=== PATIENT | female | born 1935 | race Caucasian/White ===

== ENCOUNTER → 2018-11-24 | Outpatient (CLI) | payer MEDICARE, BC | END | disposition home or self-care (01) | LOC: LAB SHORT 07:12 → PLD 07:12 | DX: C44.329 Squamous cell carcinoma of skin of other parts of face (principal) | CPT/HCPCS: 88173 ==

== ENCOUNTER 2018-12-09 06:04 | Day surgery (SDC) | payer MEDICARE, BC ==
[~2018-12-09] VITALS: Ht 165.1 cm; Wt 70.6 kg
[~2018-12-09 06:04] MED LIST: ASPI81CH PO; CALCIUM 1,0001 EACH PO; CARV6.25 PO; FURO40 PO; GLUCOSE TAB PO; HYDCHL25 PO; LATANOPROST2.5 ML BOTHEYES; LEVSOD25 PO; LUMIFY2.5 ML LEFTEYE; POTA10T PO; QUIN10 PO; RALO60 PO; SITA100T2 PO; Simvastatin40 MG PO; VENLAFAXINE H37.5 MG PO
--- NOTE | 2018-12-09 07:50 | NUR ---
LATE GETTING INTO OR. DR POTTS HERE AT 0730 SONIA AND WAITING FOR HEART [id number] TO TURN OFF DEFIBULLATOR
--- NOTE | 2018-12-09 08:48 | NUR ---
12/09/18 0848 Edison Dutta NO ANTIBIOTIC NEEDED PER DR. POTTS
--- NOTE | 2018-12-09 11:10 | NUR ---
REPORT FROM PACU STAFF.
--- NOTE | 2018-12-09 11:25 | NUR ---
PT TO ROOM 224 FROM PACU. PT ALERT AND ORIENTED. DENIES PAIN/NAUSEA. DENIES SOB. ANSWERS QUESTIONS APPROPRIATELY. VSS.
--- NOTE | 2018-12-09 12:10 | NUR ---
PT IVF STARTED, ICE WATER AND JELLO PROVIDED. PT FAMILY AT BEDSIDE. WILL CONT MONITOR.
--- NOTE | 2018-12-09 13:06 | NUR ---
PT MEDICATED WITH 2 NORCO FOR PAIN. GEORGETTE DRAIN EMPTIED (50ML SANGUINOUS). LIGHTS DIMMED FOR PT COMFORT.
--- NOTE | 2018-12-09 13:49 | NUR ---
PT RESTING IN POSITION OF COMFORT. RESP EVEN AND NON LABORED.
--- NOTE | 2018-12-09 15:50 | NUR ---
recvd report from previous RN Anmol, assumed care. pt lying in bed a/o x 4, pleasant, states to minimal pain at this time, denies need for analgesia, no n/v
--- NOTE | 2018-12-09 17:58 | NUR ---
SINCE 1599, WHEN ASSUMED CARE OF PT, PT HAS REMAINED A/O X 4, PLEASEANT/COOPERATIVE, DENIES PAIN, UP TO BATHROOM WITH URINE OUPUT 100 ML, USED CANE UP IN ROOM, IS UP IN CHAIR EATING DINNER, NO N/V
[2018-12-09 21:36] LABS: Source, Urine Voided
[2018-12-09 21:43] LABS: Bilirubin, Urine Neg (Neg); Blood, Urine 1+ (Neg); Glucose Qualitative, Urine 4+ (Neg); Ketones, Urine Neg (Neg); Leukocyte Esterase, Urine 3+ (Neg); Nitrite, Urine Pos (Neg); Protein, Urine 1+ (Neg); Specific Gravity, Urine 1.015 (1.003-1.022); Urobilinogen, Urine NORM (Normal)
[2018-12-09 21:44] LABS: Appearance, Urine Hazy (Clear); Color, Urine Yellow (P-Yellow)
[2018-12-09 22:32] LABS: Bacteria Many /hpf; Red Blood Cells, Urine 0-2 /hpf (0-2); Squamous Epithelial Cells Few /hpf (Few); White Blood Cells, Urine TNTC /hpf (0-5)
[2018-12-10] MEDS ORDERED: CIPR500 PO (11:08)
--- NOTE | 2018-12-10 14:51 | NUR ---
DISCHARGE PT AND SPOUSE PROVIDED WITH WRITTEN AND VERBAL DISCHARGE INSTRUCTIONS. THEY REPORTED UNDERSTANDING AFTER QUESTIONS WERE ANSWERED. PT VERBALIZED UNDERSTANDING HOW TO CARE FOR HER DRAIN. PT ESCORTED OUT AT APPROXIMATELY 1452 IN A WHEELCHAIR.
== END 2018-12-10 14:30 | disposition home or self-care (01) ==
LOC: ORSCMMR 06:04 → EDSTATUS 07:30 → PRE IP 07:30 → SURS 11:38 → ORSCMMR 12-10 14:30
PROVIDERS: Otolaryngology
PROC: 07T20ZZ Resection of Left Neck Lymphatic, Open Approach (ICD-10-PCS; principal; 2018-12-09 07:30)
DX: C77.0 Secondary and unspecified malignant neoplasm of lymph nodes of head, face and neck (principal); Z85.3 Personal history of malignant neoplasm of breast; I10 Essential (primary) hypertension; E11.9 Type 2 diabetes mellitus without complications; Z95.0 Presence of cardiac pacemaker; Z79.899 Other long term (current) drug therapy
CPT/HCPCS: 81001; 82947; 87077; 87086; 87186; 88305; 88342; 93287; A9270; A9270-GY; J1100; J2405; J2704; J2710; J3010; J7120

== ENCOUNTER 2019-05-05 08:00 | Day surgery (SDC) | payer MEDICARE, BC ==
[~2019-05-05 08:00] MED LIST changes: +CIPR500 PO
[2019-05-25] MEDS ORDERED: EUTHYROX25 MCG PO (11:08)
[2019-05-25] MEDS ORDERED: Accupril20 MG PO (11:08)
[2019-05-25] MEDS ORDERED: Metformin HCl850 MG PO (11:09)
[2019-05-25] MEDS ORDERED: VENL37.5 PO (11:09)
== END 2019-05-05 22:52 | disposition home or self-care (01) ==
LOC: MOI US 08:00 → MOI MAM 08:00 → MOI US 08:30
DX: C50.012 Malignant neoplasm of nipple and areola, left female breast (principal); Z17.0 Estrogen receptor positive status [ER+]
CPT/HCPCS: 19083; 77065; 88305; 88341; 88342; 88360; A4648; G0279

== ENCOUNTER → 2019-11-20 | Outpatient (CLI) | payer MEDICARE ==
[~2019-11-20] MED LIST changes: +Accupril20 MG PO; +EUTHYROX25 MCG PO; +Metformin HCl850 MG PO; +VENL37.5 PO
== END ==
LOC: LAB 17:22 → LAB SHORT 17:22
DX: A49.02 Methicillin resistant Staphylococcus aureus infection, unspecified site (principal)
CPT/HCPCS: 87070; 87205

== ENCOUNTER 2021-01-21 07:54 | Emergency (ER) | payer MEDICARE ==
[~2021-01-21] VITALS: Ht 162.6 cm; Wt 60.3 kg
== END 2021-01-21 09:07 | disposition home or self-care (01) ==
LOC: ER 07:54
DX: F07.81 Postconcussional syndrome (principal); S00.83XA Contusion of other part of head, initial encounter; I10 Essential (primary) hypertension; E11.9 Type 2 diabetes mellitus without complications; Z88.2 Allergy status to sulfonamides; Z79.899 Other long term (current) drug therapy; Z79.84 Long term (current) use of oral hypoglycemic drugs; W18.00XA Striking against unspecified object with subsequent fall, initial encounter
CPT/HCPCS: 70450; 99283-25

== ENCOUNTER 2021-01-24 17:39 | Emergency (ER) | payer MEDICARE ==
[~2021-01-24] VITALS: Ht 162.6 cm; Wt 60.3 kg
== END 2021-01-24 21:41 | disposition home or self-care (01) ==
LOC: ER 17:39
DX: S06.0X9A Concussion with loss of consciousness of unspecified duration, initial encounter (principal); I10 Essential (primary) hypertension; E11.9 Type 2 diabetes mellitus without complications; Z88.2 Allergy status to sulfonamides; Z79.899 Other long term (current) drug therapy; Z87.891 Personal history of nicotine dependence; W19.XXXA Unspecified fall, initial encounter
CPT/HCPCS: 70450; 99283-25

== ENCOUNTER 2021-04-18 08:06 | Emergency (ER) | payer MEDICARE ==
[~2021-04-18] VITALS: Ht 162.6 cm; Wt 62.6 kg
[2021-04-18] MEDS ORDERED: Monodox100 MG PO (10:01)
== END 2021-04-18 10:09 | disposition home or self-care (01) ==
LOC: ER 08:06
DX: L03.114 Cellulitis of left upper limb (principal); M19.032 Primary osteoarthritis, left wrist; I10 Essential (primary) hypertension; Z79.84 Long term (current) use of oral hypoglycemic drugs; E11.9 Type 2 diabetes mellitus without complications; I25.10 Atherosclerotic heart disease of native coronary artery without angina pectoris; Z95.810 Presence of automatic (implantable) cardiac defibrillator; Z88.2 Allergy status to sulfonamides; Z79.899 Other long term (current) drug therapy
CPT/HCPCS: 73110; 99283-25

== ENCOUNTER 2021-05-04 12:12 | Emergency (ER) | payer MEDICARE ==
[~2021-05-04] VITALS: Ht 165.1 cm; Wt 62.1 kg
[~2021-05-04 12:12] MED LIST changes: +Monodox100 MG PO
== END 2021-05-04 13:22 | disposition home or self-care (01) ==
LOC: ER 12:12
DX: S00.511A Abrasion of lip, initial encounter (principal); I10 Essential (primary) hypertension; E11.9 Type 2 diabetes mellitus without complications; I25.10 Atherosclerotic heart disease of native coronary artery without angina pectoris; Z95.5 Presence of coronary angioplasty implant and graft; Z88.2 Allergy status to sulfonamides; Z79.899 Other long term (current) drug therapy; Z79.84 Long term (current) use of oral hypoglycemic drugs; X58.XXXA Exposure to other specified factors, initial encounter
CPT/HCPCS: 99282

== ENCOUNTER 2021-11-06 09:04 | Day surgery (SDC) | payer MEDICARE ==
[~2021-11-06] VITALS: Ht 162.6 cm; Wt 61.0 kg
[~2021-11-06 09:04] MED LIST changes: +ANASTROZOLE1 M7 PO; +Alphagan P5 ML BOTHEYES
--- NOTE | 2021-11-06 13:35 | NUR ---
PT DRESSED SELF WITH NO COMPLICATION. SITE COVERED WITH CLEAN DRESSING AND TEGADERM. NO BLEEDING, OOZING OR HEMATOMA NOTED. PT DENIES ANY PAIN. PT STATES HER UNDERSTANDING OF SITE CARE AND DC INSTRUCTIONS AND DENIES ANY QUESTIONS OR CONCERNS. IV DCD WITH CATH INTACT. PT TAKEN TO EXIT VIA WHEELCHAIR.
== END 2021-11-06 13:15 | disposition home or self-care (01) ==
LOC: MHTC 09:04
DX: Z45.02 Encounter for adjustment and management of automatic implantable cardiac defibrillator (principal); I42.0 Dilated cardiomyopathy; I10 Essential (primary) hypertension; E11.9 Type 2 diabetes mellitus without complications; Z79.84 Long term (current) use of oral hypoglycemic drugs; Z95.810 Presence of automatic (implantable) cardiac defibrillator; Z88.2 Allergy status to sulfonamides
CPT/HCPCS: 33264; 99152; 99153; J0690; J1580; J1644; J2250; J3010; J3370; J7030; J7040

== ENCOUNTER 2022-06-25 08:24 | Day surgery (SDC) | payer MEDICARE ==
[~2022-06-25] VITALS: Ht 162.6 cm; Wt 59.5 kg
[~2022-06-25 08:24] MED LIST changes: +CEFD300 PO
[2022-06-25] MEDS ORDERED: LEVSOD25 (08:48)
[2022-06-25] MEDS ORDERED: DOC250 (08:48)
[2022-06-25] MEDS ORDERED: GLUCOSE4 GM (08:48)
== END 2022-06-25 11:31 | disposition home or self-care (01) ==
LOC: ORSCSDS 08:24
PROVIDERS: Internal Medicine Gastroenterology
PROC: 0DBL8ZX Excision of Transverse Colon, Via Natural or Artificial Opening Endoscopic, Diagnostic (ICD-10-PCS; principal; 2022-06-25 09:45)
PROC: 0DBP8ZX Excision of Rectum, Via Natural or Artificial Opening Endoscopic, Diagnostic (ICD-10-PCS; principal; 2022-06-25 09:45)
PROC: 0DBC8ZX Excision of Ileocecal Valve, Via Natural or Artificial Opening Endoscopic, Diagnostic (ICD-10-PCS; principal; 2022-06-25 09:45)
DX: R19.4 Change in bowel habit (principal); C18.0 Malignant neoplasm of cecum; D12.3 Benign neoplasm of transverse colon; K62.1 Rectal polyp; K57.30 Diverticulosis of large intestine without perforation or abscess without bleeding; K64.8 Other hemorrhoids; E11.9 Type 2 diabetes mellitus without complications; I10 Essential (primary) hypertension; K21.9 Gastro-esophageal reflux disease without esophagitis; Z87.891 Personal history of nicotine dependence; Z79.84 Long term (current) use of oral hypoglycemic drugs; Z79.899 Other long term (current) drug therapy
CPT/HCPCS: 82947; 88305; J2704; J7120

== ENCOUNTER → 2022-07-30 | Outpatient (CLI) | payer MEDICARE ==
[~2022-07-30] MED LIST changes: +DOC250; +GLUCOSE4 GM; +LEVSOD25
== END | disposition home or self-care (01) ==
LOC: LAB 07:57 → LAB SHORT 07:57
DX: C44.42 Squamous cell carcinoma of skin of scalp and neck (principal); C44.40 Unspecified malignant neoplasm of skin of scalp and neck; C77.0 Secondary and unspecified malignant neoplasm of lymph nodes of head, face and neck
CPT/HCPCS: 88305

== ENCOUNTER 2022-08-31 07:54 | Inpatient (IN) | payer MEDICARE ==
[~2022-08-31] VITALS: Ht 160 cm; Wt 58.8 kg
--- NOTE | 2022-09-02 07:50 | NUR ---
Ambulatory in Day Surgery. Surgical site prepped with 2% Chlorhexidine cloth wipe. Patient states colon prep results clear. History, Chart, Medications and Allergies reviewed before start of procedure.Patient confirms NPO status and agrees with scheduled surgery. Patient reports completing Chlorhexadine shower X2 prior to admission to hospital.Lungs clear T/O to Auscultation. Insulin given per order 3U SC for blood sugar of 293. Pt drank clear ensure at 0430.
--- NOTE | 2022-09-02 07:53 | NUR ---
CARDIOLOGY HERE TO ACCESS DEFIBRILATOR TO TURN OFF AT 0730.
--- NOTE | 2022-09-02 12:46 | NUR ---
PATIENT CAME BACK FROM PACU TODAY AT 1230. POD 0 LAP COLECTOMY PATIENT IS A&OX4. VS ARE WNL AND IS ON RA. PATIENT REPORTS MINIMAL PAIN AT THIS TIME. SHE HAS 4 LAP SITES WITH STERI STRIPS THAT ARE C/D/I AND ONE INCISION BELOW THE BELLY BUTTON THAT HAS GAUZE WITH TAPE THAT IS ALSO C/D/I. SHE DENIES NAUSEA OR VOMITING. SHE IS TOLERATING SMALL SIPS OF CLEAR LIQUID. MICHEL IS DRAINING PER GRAVITY WITH YELLOW URINE. SHE IS LAYING IN BED WITH CALL LIGHT IN REACH.
[2022-09-02 13:12] LABS: Source, Urine Foley catheter
[2022-09-02 13:20] LABS: Bilirubin, Urine Neg (Neg); Blood, Urine 2+ (Neg); Glucose Qualitative, Urine 3+ (Neg); Ketones, Urine Neg (Neg); Leukocyte Esterase, Urine 3+ (Neg); Nitrite, Urine Neg (Neg); Protein, Urine Neg (Neg); Urobilinogen, Urine NORM (Normal)
[2022-09-02 13:53] LABS: Appearance, Urine Hazy (Clear); Color, Urine Yellow (P-Yellow)
[2022-09-02 13:54] LABS: Bacteria Few /hpf; Squamous Epithelial Cells Few /hpf (Few); White Blood Cells, Urine 25-50 /hpf (0-5)
--- NOTE | 2022-09-02 15:00 | NUR ---
SHIFT SUMMARY: POD 0 LAP COLECTOMY NO SIGNIFICANT CHANGES SINCE POST OP. PAIN IS MANAGED SO FAR WITH PO TYLENOL AND IV FENT. HER X5 LAP SITES ON ABD WITH STERI STRIPS AND ONE WITH GAUZE/TAPE IS C/D/I. ABD IS TENDER BUT SOFT TO TOUCH. DENIES NAUSEA OR VOMITING. MICHEL IS INTACT WITH YELLOW URINE OUTPUT. DENIES NUMBNESS OR TINGLING IN ALL EXTREMITIES. SHE IS TOLERATING SMALL AMOUNTS OF CLEAR LIQUID PO INTAKE. CALLS APPROPRIATELY. CALL LIGHT WITHIN REACH. THE PLAN IS TO CONTINUE PAIN MANAGEMENT AND CONTINUE CLEAR LIQUID DIET.
[2022-09-03 04:01] LABS: BASOPHILS ABSOLUTE AUTO 0.02 K/mm3 (0.00-0.23); BASOPHILS PERCENT AUTO 0 % (0-2); EOSINOPHILS ABSOLUTE AUTO 0.02 K/mm3 (0.00-0.68); EOSINOPHILS PERCENT AUTO 0 % (0-6); Hematocrit 29.3 % (33.0-51.0); IMMATURE GRAN ABSOLUTE AUTO 0.02 K/mm3 (0.00-0.10); IMMATURE GRAN PERCENT AUTO 0 % (0-1); LYMPHOCYTES PERCENT AUTO 9 % (21-46); MONOCYTES ABSOLUTE AUTO 0.77 K/mm3 (0.16-1.47); MONOCYTES PERCENT AUTO 8 % (4-13); Mean Corpuscular HGB 30.1 pg (26.0-34.0); Mean Corpuscular HGB Conc 34.1 g/dL (31.5-36.5); Mean Corpuscular Volume 88 fL (80-100); Mean Platelet Volume 11.4 fL (9.1-12.4); NEUTROPHILS ABSOLUTE AUTO 8.38 K/mm3 (1.96-9.15); NEUTROPHILS PERCENT AUTO 83 % (41-73); Platelet Count 165 K/mm3 (150-400); RDW Coefficient Variation 14.4 % (11.7-14.2); RDW Standard Deviation 46.4 fL (35.1-46.3); Red Blood Cell Count 3.32 M/mm3 (3.80-5.20); White Blood Cell Count 10.11 K/mm3 (4.00-11.30)
[2022-09-03 04:21] LABS: Calcium, Blood 8.8 mg/dL (8.5-10.1); Potassium, Blood 2.9 mmol/L (3.5-5.5)
--- NOTE | 2022-09-03 05:14 | NUR ---
DIRECTOR OF STRATEGIC PARTNERSHIPS SUMMARY PT POD 0 FOR LAP COLECTOMY. ABD LAP SITES X5 C/D/I. PT REPORTS MINIMAL PAIN TO ABD THAT HAS BEEN CONTROLLED WITH SCHEDULED TYLENOL. TOLERATING CLEAR LIQUID DIET WITH NO ISSUE. DENIES BM/FLATUS THUS FAR. VSS, WILL CONTINUE TO MONITOR.
--- NOTE | 2022-09-03 10:18 | NUR ---
0845 REPORTS NAUSEA AFTER ATE JELLO, ZOFRAN GIVEN
--- NOTE | 2022-09-03 11:51 | NUR ---
0834 PT REPORTS LEFT EYE SLIGHTLY PAINFUL SINCE YESTERDAY FOLLOWING SURGERY, STATES FEELS LIKE A "SCRATCH ON MY EYE" DR ROLDAN AWARE OF AND ORDERS RECEIVED
--- NOTE | 2022-09-03 11:52 | NUR ---
PT REPORTS EYE PAIN MUCH LESS TO LEFT EYE AFTER DROPS APPLIED THIS MORNIING
[2022-09-03 14:32] LABS: Bun/Creatinine Ratio 24.6 (12.0-20.0); Calcium, Blood 8.7 mg/dL (8.5-10.1); Creatinine, Blood 0.93 mg/dL (0.40-1.00); Phosphorus, Blood 2.7 mg/dL (2.5-4.9); Potassium, Blood 3.1 mmol/L (3.5-5.5)
[2022-09-04 05:21] LABS: BASOPHILS ABSOLUTE AUTO 0.02 K/mm3 (0.00-0.23); BASOPHILS PERCENT AUTO 0 % (0-2); EOSINOPHILS ABSOLUTE AUTO 0.28 K/mm3 (0.00-0.68); EOSINOPHILS PERCENT AUTO 3 % (0-6); Hematocrit 32.8 % (33.0-51.0); IMMATURE GRAN ABSOLUTE AUTO 0.03 K/mm3 (0.00-0.10); IMMATURE GRAN PERCENT AUTO 0 % (0-1); LYMPHOCYTES ABSOLUTE AUTO 1.18 K/mm3 (0.84-5.20); LYMPHOCYTES PERCENT AUTO 14 % (21-46); MONOCYTES ABSOLUTE AUTO 0.88 K/mm3 (0.16-1.47); MONOCYTES PERCENT AUTO 10 % (4-13); Mean Corpuscular HGB 29.7 pg (26.0-34.0); Mean Corpuscular HGB Conc 33.5 g/dL (31.5-36.5); Mean Corpuscular Volume 89 fL (80-100); Mean Platelet Volume 11.3 fL (9.1-12.4); NEUTROPHILS ABSOLUTE AUTO 6.35 K/mm3 (1.96-9.15); NEUTROPHILS PERCENT AUTO 73 % (41-73); Platelet Count 201 K/mm3 (150-400); RDW Coefficient Variation 14.2 % (11.7-14.2); RDW Standard Deviation 45.6 fL (35.1-46.3); White Blood Cell Count 8.74 K/mm3 (4.00-11.30)
[2022-09-04 05:39] LABS: Magnesium, Blood 1.8 mg/dL (1.6-2.4)
[2022-09-04 05:40] LABS: Bun/Creatinine Ratio 19.3 (12.0-20.0); Calcium, Blood 10.2 mg/dL (8.5-10.1); Creatinine, Blood 0.83 mg/dL (0.40-1.00); Phosphorus, Blood 2.6 mg/dL (2.5-4.9); Potassium, Blood 3.6 mmol/L (3.5-5.5)
--- NOTE | 2022-09-04 06:32 | NUR ---
Patient given scheduled pain medication and slept well overnight. Surgical sites clean dry and intact. Patient is passing gas and had smear/small bowel movement. Patient walks to bathroom with cane with minimal to no assist. Gait is steady. Patient tolerating clear liquids. No questions or concerns at this time.
[2022-09-04] MEDS ORDERED: ACET325 PO (13:31)
--- NOTE | 2022-09-04 14:04 | NUR ---
1402 DISCHARGED TO [facility] WITH . PT HAS HAD 2 SOFT BROWN BM THIS SHIFT, DENIES NAUSEA, AMBULATING IN ROOM. PT TAKING PO FOOD AND FLUIDS, VOIDING CLEAR YELLOW URINE. ABD INCISIONS INTACT WITHOUT REDNESS OR DRAINAGE. PT AND SPOUSE IN AGREEMENT WITH DISCHARGE PLAN
== END 2022-09-04 14:02 | disposition home or self-care (01) | DRG 331 ==
LOC: PRE IP 09-02 06:09 → SURS 09-02 06:09 → PRE IP 09-02 07:30 → SURS 09-02 11:36
PROVIDERS: ADMIT Surgery
PROC: 8E0W4CZ Robotic Assisted Procedure of Trunk Region, Percutaneous Endoscopic Approach (ICD-10-PCS; 2022-09-02)
PROC: 0DBF4ZZ Excision of Right Large Intestine, Percutaneous Endoscopic Approach (ICD-10-PCS; principal; 2022-09-02 07:30)
DX: C18.0 Malignant neoplasm of cecum (principal); Z28.21 Immunization not carried out because of patient refusal; M19.90 Unspecified osteoarthritis, unspecified site; K59.09 Other constipation; H40.9 Unspecified glaucoma; I10 Essential (primary) hypertension; E03.9 Hypothyroidism, unspecified; E11.9 Type 2 diabetes mellitus without complications; Z85.3 Personal history of malignant neoplasm of breast; Z87.891 Personal history of nicotine dependence; Z90.49 Acquired absence of other specified parts of digestive tract; Z95.810 Presence of automatic (implantable) cardiac defibrillator; Z90.710 Acquired absence of both cervix and uterus; Z90.722 Acquired absence of ovaries, bilateral; Z88.2 Allergy status to sulfonamides; Z79.84 Long term (current) use of oral hypoglycemic drugs; Z79.890 Hormone replacement therapy; Z79.899 Other long term (current) drug therapy
CPT/HCPCS: 36415; 80048; 81001; 82947; 83735; 84100; 85025; 86850; 86900; 86901; 87086; 88309; A9270; J0690; J1650; J1815; J1885; J2370; J2405; J2704; J2765; J2795; J3010

== ENCOUNTER 2022-11-19 14:36 | Emergency (ER) | payer MEDICARE ==
[~2022-11-19] VITALS: Ht 162.6 cm; Wt 55.8 kg
[~2022-11-19 14:36] MED LIST changes: +ACET325 PO
[2022-11-19 15:04] LABS: BASOPHILS ABSOLUTE AUTO 0.03 K/mm3 (0.00-0.23); BASOPHILS PERCENT AUTO 0 % (0-2); EOSINOPHILS ABSOLUTE AUTO 0.16 K/mm3 (0.00-0.68); EOSINOPHILS PERCENT AUTO 2 % (0-6); Hemoglobin 10.4 g/dL (11.5-16.0); IMMATURE GRAN ABSOLUTE AUTO 0.06 K/mm3 (0.00-0.10); IMMATURE GRAN PERCENT AUTO 1 % (0-1); LYMPHOCYTES ABSOLUTE AUTO 0.88 K/mm3 (0.84-5.20); LYMPHOCYTES PERCENT AUTO 12 % (21-46); MONOCYTES ABSOLUTE AUTO 0.67 K/mm3 (0.16-1.47); MONOCYTES PERCENT AUTO 9 % (4-13); Mean Corpuscular HGB 29.5 pg (26.0-34.0); Mean Corpuscular HGB Conc 33.5 g/dL (31.5-36.5); Mean Corpuscular Volume 88 fL (80-100); Mean Platelet Volume 10.5 fL (9.1-12.4); NEUTROPHILS ABSOLUTE AUTO 5.35 K/mm3 (1.96-9.15); NEUTROPHILS PERCENT AUTO 75 % (41-73); Platelet Count 227 K/mm3 (150-400); RDW Coefficient Variation 14.2 % (11.7-14.2); RDW Standard Deviation 45.7 fL (35.1-46.3); Red Blood Cell Count 3.52 M/mm3 (3.80-5.20); White Blood Cell Count 7.15 K/mm3 (4.00-11.30)
[2022-11-19 15:22] LABS: Albumin, Blood 3.5 g/dL (3.4-5.0); Bilirubin, Total 0.2 mg/dL (0.1-1.0); Bun/Creatinine Ratio 21.8 (12.0-20.0); Creatinine, Blood 1.1 mg/dL (0.40-1.00); Globulin, Blood 3.5 g/dL (2.2-4.0); Potassium, Blood 4.4 mmol/L (3.5-5.5)
[2022-11-19 15:30] LABS: Source, Urine Clean Catch
[2022-11-19 15:41] LABS: Appearance, Urine Cloudy (Clear); Bilirubin, Urine Neg (Neg); Blood, Urine 2+ (Neg); Color, Urine Yellow (P-Yellow); Glucose Qualitative, Urine Neg (Neg); Ketones, Urine Neg (Neg); Leukocyte Esterase, Urine 3+ (Neg); Nitrite, Urine Neg (Neg); Protein, Urine 2+ (Neg); Urobilinogen, Urine NORM (Normal)
[2022-11-19 15:50] LABS: Bacteria Mod /hpf; Squamous Epithelial Cells Few /hpf (Few); Transitional Epithelial Cells Few /hpf (0-Rare); White Blood Cells, Urine TNTC /hpf (0-5)
[2022-11-19] MEDS ORDERED: CEFD300 PO (16:28)
[2022-11-19 16:30] VITALS: BP 155/70
[2022-11-19] MEDS ORDERED: CEPH500 PO (16:46)
== END 2022-11-19 16:40 | disposition home or self-care (01) ==
LOC: ER 14:36
PROVIDERS: Student in an Organized Health Care Education/Training Program
DX: N39.0 Urinary tract infection, site not specified (principal); Z88.2 Allergy status to sulfonamides; Z79.899 Other long term (current) drug therapy; Z79.84 Long term (current) use of oral hypoglycemic drugs; E11.9 Type 2 diabetes mellitus without complications; I10 Essential (primary) hypertension; I25.10 Atherosclerotic heart disease of native coronary artery without angina pectoris
CPT/HCPCS: 36415; 80053; 81001; 85025; 87077; 87086; 87186; 93005; 93010; 99284-25; A9270

== ENCOUNTER 2023-01-18 10:14 | Emergency (ER) | payer MEDICARE ==
[~2023-01-18] VITALS: Ht 162.6 cm; Wt 54.9 kg
[~2023-01-18 10:14] MED LIST changes: +CEPH500 PO
[2023-01-18 11:21] LABS: Albumin, Blood 3.6 g/dL (3.4-5.0); Bilirubin, Total 0.6 mg/dL (0.1-1.0); Bun/Creatinine Ratio 19.1 (12.0-20.0); Creatinine, Blood 1.15 mg/dL (0.40-1.00); Globulin, Blood 3.5 g/dL (2.2-4.0); Potassium, Blood 3.8 mmol/L (3.5-5.5); Total Protein, Blood 7.1 g/dL (6.4-8.2)
[2023-01-18 11:24] LABS: BASOPHILS ABSOLUTE AUTO 0.04 K/mm3 (0.00-0.23); BASOPHILS PERCENT AUTO 1 % (0-2); EOSINOPHILS ABSOLUTE AUTO 0.01 K/mm3 (0.00-0.68); EOSINOPHILS PERCENT AUTO 0 % (0-6); Hematocrit 33.7 % (33.0-51.0); Hemoglobin 11.4 g/dL (11.5-16.0); IMMATURE GRAN ABSOLUTE AUTO 0.06 K/mm3 (0.00-0.10); IMMATURE GRAN PERCENT AUTO 1 % (0-1); LYMPHOCYTES ABSOLUTE AUTO 1.05 K/mm3 (0.84-5.20); LYMPHOCYTES PERCENT AUTO 15 % (21-46); MONOCYTES ABSOLUTE AUTO 0.65 K/mm3 (0.16-1.47); MONOCYTES PERCENT AUTO 9 % (4-13); Mean Corpuscular HGB 29.4 pg (26.0-34.0); Mean Corpuscular HGB Conc 33.8 g/dL (31.5-36.5); Mean Corpuscular Volume 87 fL (80-100); Mean Platelet Volume 11.5 fL (9.1-12.4); NEUTROPHILS ABSOLUTE AUTO 5.36 K/mm3 (1.96-9.15); NEUTROPHILS PERCENT AUTO 75 % (41-73); Platelet Count 224 K/mm3 (150-400); RDW Coefficient Variation 15.3 % (11.7-14.2); RDW Standard Deviation 48.7 fL (35.1-46.3); Red Blood Cell Count 3.88 M/mm3 (3.80-5.20); White Blood Cell Count 7.17 K/mm3 (4.00-11.30)
[2023-01-18 13:12] VITALS: BP 140/69
[2023-01-19] MEDS ORDERED: ONDA4ODT MM (22:57)
[2023-01-19] MEDS ORDERED: CIPR500 PO (22:57)
== END 2023-01-18 13:34 | disposition home or self-care (01) ==
LOC: ER 10:14
PROVIDERS: Physician Assistant
DX: K52.9 Noninfective gastroenteritis and colitis, unspecified (principal); E11.22 Type 2 diabetes mellitus with diabetic chronic kidney disease; N18.9 Chronic kidney disease, unspecified; I25.10 Atherosclerotic heart disease of native coronary artery without angina pectoris; Z88.2 Allergy status to sulfonamides; Z79.899 Other long term (current) drug therapy; Z79.890 Hormone replacement therapy; Z87.891 Personal history of nicotine dependence; Z90.49 Acquired absence of other specified parts of digestive tract
CPT/HCPCS: 80053; 85025

== ENCOUNTER 2023-01-19 19:26 | Emergency (ER) | payer MEDICARE ==
[~2023-01-19] VITALS: Ht 162.6 cm; Wt 55.3 kg
[2023-01-19 20:09] LABS: BASOPHILS ABSOLUTE AUTO 0.03 K/mm3 (0.00-0.23); BASOPHILS PERCENT AUTO 0 % (0-2); EOSINOPHILS ABSOLUTE AUTO 0.06 K/mm3 (0.00-0.68); EOSINOPHILS PERCENT AUTO 1 % (0-6); Hematocrit 35.2 % (33.0-51.0); Hemoglobin 11.8 g/dL (11.5-16.0); IMMATURE GRAN ABSOLUTE AUTO 0.08 K/mm3 (0.00-0.10); IMMATURE GRAN PERCENT AUTO 1 % (0-1); LYMPHOCYTES ABSOLUTE AUTO 1.26 K/mm3 (0.84-5.20); LYMPHOCYTES PERCENT AUTO 16 % (21-46); MONOCYTES ABSOLUTE AUTO 0.82 K/mm3 (0.16-1.47); MONOCYTES PERCENT AUTO 11 % (4-13); Mean Corpuscular HGB 29.7 pg (26.0-34.0); Mean Corpuscular HGB Conc 33.5 g/dL (31.5-36.5); Mean Corpuscular Volume 89 fL (80-100); Mean Platelet Volume 11.3 fL (9.1-12.4); NEUTROPHILS ABSOLUTE AUTO 5.47 K/mm3 (1.96-9.15); NEUTROPHILS PERCENT AUTO 71 % (41-73); Platelet Count 214 K/mm3 (150-400); RDW Coefficient Variation 15.4 % (11.7-14.2); RDW Standard Deviation 50.5 fL (35.1-46.3); Red Blood Cell Count 3.97 M/mm3 (3.80-5.20); White Blood Cell Count 7.72 K/mm3 (4.00-11.30)
[2023-01-19 20:27] LABS: Albumin, Blood 3.7 g/dL (3.4-5.0); Bilirubin, Total 0.4 mg/dL (0.1-1.0); Bun/Creatinine Ratio 22.4 (12.0-20.0); Calcium, Blood 9.4 mg/dL (8.5-10.1); Creatinine, Blood 1.47 mg/dL (0.40-1.00); Globulin, Blood 3.8 g/dL (2.2-4.0); Potassium, Blood 4.4 mmol/L (3.5-5.5); Total Protein, Blood 7.5 g/dL (6.4-8.2)
[2023-01-19 22:07] LABS: Source, Urine Clean Catch
[2023-01-19 22:11] LABS: Bilirubin, Urine Neg (Neg); Blood, Urine 2+ (Neg); Glucose Qualitative, Urine Neg (Neg); Ketones, Urine Neg (Neg); Leukocyte Esterase, Urine 3+ (Neg); Nitrite, Urine Neg (Neg); Protein, Urine 1+ (Neg); Specific Gravity, Urine 1.015 (1.003-1.022); Urobilinogen, Urine NORM (Normal)
[2023-01-19 22:17] LABS: Appearance, Urine Hazy (Clear); Color, Urine Pale Yellow (P-Yellow)
[2023-01-19 22:18] LABS: Bacteria Mod /hpf; Squamous Epithelial Cells Few /hpf (Few); White Blood Cells, Urine 25-50 /hpf (0-5)
[2023-01-19 22:19] LABS: Transitional Epithelial Cells Few /hpf (0-Rare)
[2023-01-19] MEDS ORDERED: CIPR500 PO (22:57)
[2023-01-19] MEDS ORDERED: ONDA4ODT MM (22:57)
[2023-01-19 23:00] VITALS: BP 145/70
== END 2023-01-19 23:13 | disposition home or self-care (01) ==
LOC: ER 19:26
PROVIDERS: Emergency Medicine
DX: N39.0 Urinary tract infection, site not specified (principal); K85.90 Acute pancreatitis without necrosis or infection, unspecified; I10 Essential (primary) hypertension; I25.10 Atherosclerotic heart disease of native coronary artery without angina pectoris; E11.9 Type 2 diabetes mellitus without complications; Z95.810 Presence of automatic (implantable) cardiac defibrillator; Z88.2 Allergy status to sulfonamides; Z79.899 Other long term (current) drug therapy; Z79.84 Long term (current) use of oral hypoglycemic drugs
CPT/HCPCS: 74177; 80053; 81001; 83690; 85025; A9270; J2405; J7030; Q9967

== ENCOUNTER → 2023-04-21 | Outpatient (CLI) | payer MEDICARE ==
[~2023-04-21] MED LIST changes: +ONDA4ODT MM
== END ==
LOC: LAB SHORT 13:51 → LAB 13:51 → LAB FUT 04-18 15:15
DX: N18.30 Chronic kidney disease, stage 3 unspecified (principal); D63.1 Anemia in chronic kidney disease; N25.81 Secondary hyperparathyroidism of renal origin; E55.9 Vitamin D deficiency, unspecified; E78.00 Pure hypercholesterolemia, unspecified; R76.9 Abnormal immunological finding in serum, unspecified; R94.5 Abnormal results of liver function studies; R94.6 Abnormal results of thyroid function studies; D51.8 Other vitamin B12 deficiency anemias; D52.8 Other folate deficiency anemias; D50.9 Iron deficiency anemia, unspecified
CPT/HCPCS: 86335

== ENCOUNTER → 2023-04-21 | Outpatient (CLI) | payer MEDICARE ==
[2023-04-21 11:40] LABS: Creatinine Urine 20.6 mg/dL (27.00-270.00); Protein, Urine Quantitative 8.6 mg/dL (0.0-11.9)
== END | disposition home or self-care (01) ==
LOC: LAB 06:08 → LAB SHORT 06:08
PROVIDERS: Internal Medicine Nephrology
DX: N18.30 Chronic kidney disease, stage 3 unspecified (principal); D63.1 Anemia in chronic kidney disease; N25.81 Secondary hyperparathyroidism of renal origin; E55.9 Vitamin D deficiency, unspecified; E78.00 Pure hypercholesterolemia, unspecified; R76.9 Abnormal immunological finding in serum, unspecified; R94.5 Abnormal results of liver function studies; R94.6 Abnormal results of thyroid function studies; D51.8 Other vitamin B12 deficiency anemias; D52.8 Other folate deficiency anemias; D50.9 Iron deficiency anemia, unspecified
CPT/HCPCS: 81050; 82043; 82570; 84156

== ENCOUNTER 2023-05-14 12:02 | Day surgery (SDC) | payer MEDICARE ==
[~2023-05-14] VITALS: Ht 152.4 cm; Wt 55.6 kg
[2023-05-14] MEDS ORDERED: LISI20 PO (12:38)
[2023-05-14] MEDS ORDERED: Amiodarone HCl200 MG PO (12:39)
[2023-05-14 13:59] VITALS: BP 137/76
--- NOTE | 2023-05-14 14:03 | NUR ---
05/14/23 1403 Chelsey Mitchell IV DC'D CATH INTACT PT TOLERATED WELL. COBAN AND GAUZE IN PLACE
== END 2023-05-14 14:03 | disposition home or self-care (01) ==
LOC: ORSCSDS 12:02
PROVIDERS: Internal Medicine Gastroenterology
PROC: 0DJD8ZZ Inspection of Lower Intestinal Tract, Via Natural or Artificial Opening Endoscopic (ICD-10-PCS; principal; 2023-05-14 13:15)
PROC: 0DJ08ZZ Inspection of Upper Intestinal Tract, Via Natural or Artificial Opening Endoscopic (ICD-10-PCS; principal; 2023-05-14 13:15)
DX: Z85.038 Personal history of other malignant neoplasm of large intestine (principal); K21.9 Gastro-esophageal reflux disease without esophagitis; K57.30 Diverticulosis of large intestine without perforation or abscess without bleeding; K64.8 Other hemorrhoids; Z80.0 Family history of malignant neoplasm of digestive organs; Z85.3 Personal history of malignant neoplasm of breast; Z85.828 Personal history of other malignant neoplasm of skin; Z85.89 Personal history of malignant neoplasm of other organs and systems; Z86.010 Personal history of colon polyps; I25.10 Atherosclerotic heart disease of native coronary artery without angina pectoris; Z87.891 Personal history of nicotine dependence; E11.9 Type 2 diabetes mellitus without complications; E03.9 Hypothyroidism, unspecified; I50.9 Heart failure, unspecified; Z79.84 Long term (current) use of oral hypoglycemic drugs; Z79.899 Other long term (current) drug therapy
CPT/HCPCS: 82947; J0461; J2001; J2371; J2405; J2704; J7120; Q9968

== ENCOUNTER 2023-06-30 10:13 | Emergency (ER) | payer MEDICARE, BC ==
[~2023-06-30] VITALS: Ht 162.6 cm; Wt 55.8 kg
[~2023-06-30 10:13] MED LIST changes: +Amiodarone HCl200 MG PO; +LISI20 PO
[2023-06-30 11:08] LABS: Source, Urine Clean Catch
[2023-06-30 11:10] LABS: BASOPHILS ABSOLUTE AUTO 0.06 K/mm3 (0.00-0.23); BASOPHILS PERCENT AUTO 1 % (0-2); EOSINOPHILS ABSOLUTE AUTO 0.11 K/mm3 (0.00-0.68); EOSINOPHILS PERCENT AUTO 2 % (0-6); Hematocrit 34.3 % (33.0-51.0); Hemoglobin 11.7 g/dL (11.5-16.0); IMMATURE GRAN ABSOLUTE AUTO 0.09 K/mm3 (0.00-0.10); IMMATURE GRAN PERCENT AUTO 1 % (0-1); LYMPHOCYTES ABSOLUTE AUTO 0.86 K/mm3 (0.84-5.20); LYMPHOCYTES PERCENT AUTO 11 % (21-46); MONOCYTES PERCENT AUTO 8 % (4-13); Mean Corpuscular HGB 33.1 pg (26.0-34.0); Mean Corpuscular HGB Conc 34.1 g/dL (31.5-36.5); Mean Corpuscular Volume 97 fL (80-100); Mean Platelet Volume 11.1 fL (9.1-12.4); NEUTROPHILS ABSOLUTE AUTO 5.81 K/mm3 (1.96-9.15); NEUTROPHILS PERCENT AUTO 77 % (41-73); Platelet Count 208 K/mm3 (150-400); RDW Coefficient Variation 14.4 % (11.7-14.2); RDW Standard Deviation 51.7 fL (35.1-46.3); Red Blood Cell Count 3.54 M/mm3 (3.80-5.20); White Blood Cell Count 7.53 K/mm3 (4.00-11.30)
[2023-06-30 11:13] LABS: Bilirubin, Urine Neg (Neg); Blood, Urine 3+ (Neg); Glucose Qualitative, Urine Neg (Neg); Ketones, Urine Neg (Neg); Leukocyte Esterase, Urine 3+ (Neg); Nitrite, Urine Pos (Neg); Protein, Urine 2+ (Neg); Urobilinogen, Urine NORM (Normal)
[2023-06-30 11:21] LABS: Appearance, Urine Cloudy (Clear); Color, Urine Yellow (P-Yellow)
[2023-06-30 11:29] LABS: Bacteria Many /hpf; White Blood Cells, Urine 50-100 /hpf (0-5)
[2023-06-30 11:32] LABS: Hyaline Casts 0-2 /lpf (0-2); Squamous Epithelial Cells Rare /hpf (Few); Transitional Epithelial Cells Rare /hpf (0-Rare)
[2023-06-30 11:41] LABS: Albumin, Blood 3.7 g/dL (3.4-5.0); Bilirubin, Total 0.4 mg/dL (0.1-1.0); Bun/Creatinine Ratio 21.9 (12.0-20.0); Creatinine, Blood 1.28 mg/dL (0.40-1.00); Globulin, Blood 3.8 g/dL (2.2-4.0); Potassium, Blood 4.7 mmol/L (3.5-5.5); Total Protein, Blood 7.5 g/dL (6.4-8.2)
[2023-06-30] MEDS ORDERED: CEPH500 PO (11:59)
[2023-06-30 12:15] VITALS: BP 147/130
== END 2023-06-30 12:23 | disposition home or self-care (01) ==
LOC: ER 10:13
PROVIDERS: Emergency Medicine
DX: N39.0 Urinary tract infection, site not specified (principal); K59.00 Constipation, unspecified; Z88.2 Allergy status to sulfonamides; Z79.899 Other long term (current) drug therapy; Z79.84 Long term (current) use of oral hypoglycemic drugs; E11.9 Type 2 diabetes mellitus without complications; I10 Essential (primary) hypertension; I25.10 Atherosclerotic heart disease of native coronary artery without angina pectoris; Z87.891 Personal history of nicotine dependence
CPT/HCPCS: 74177; 80053; 81001; 85025; 87077; 87086; 87186; 99284-25; Q9967

== ENCOUNTER 2023-08-03 11:59 | Inpatient (IN) | payer MEDICARE ==
[~2023-08-03] VITALS: Ht 162.6 cm; Wt 61.4 kg
[2023-08-03 14:25] LABS: BASOPHILS ABSOLUTE AUTO 0.03 K/mm3 (0.00-0.23); BASOPHILS PERCENT AUTO 0 % (0-2); EOSINOPHILS ABSOLUTE AUTO 0.03 K/mm3 (0.00-0.68); EOSINOPHILS PERCENT AUTO 0 % (0-6); Hematocrit 33.1 % (33.0-51.0); Hemoglobin 11.3 g/dL (11.5-16.0); IMMATURE GRAN ABSOLUTE AUTO 0.11 K/mm3 (0.00-0.10); IMMATURE GRAN PERCENT AUTO 1 % (0-1); LYMPHOCYTES ABSOLUTE AUTO 0.46 K/mm3 (0.84-5.20); LYMPHOCYTES PERCENT AUTO 5 % (21-46); MONOCYTES ABSOLUTE AUTO 0.43 K/mm3 (0.16-1.47); MONOCYTES PERCENT AUTO 4 % (4-13); Mean Corpuscular HGB 32.9 pg (26.0-34.0); Mean Corpuscular HGB Conc 34.1 g/dL (31.5-36.5); Mean Corpuscular Volume 97 fL (80-100); Mean Platelet Volume 10.8 fL (9.1-12.4); NEUTROPHILS ABSOLUTE AUTO 8.61 K/mm3 (1.96-9.15); NEUTROPHILS PERCENT AUTO 89 % (41-73); Platelet Count 170 K/mm3 (150-400); RDW Coefficient Variation 13.2 % (11.7-14.2); Red Blood Cell Count 3.43 M/mm3 (3.80-5.20); White Blood Cell Count 9.67 K/mm3 (4.00-11.30)
[2023-08-03 14:46] LABS: International Normalized Ratio 1.04; Prothrombin Time Results 10.9 Sec (9.7-11.5)
[2023-08-03 14:49] LABS: Albumin, Blood 3.5 g/dL (3.4-5.0); Albumin/Globulin Ratio 1.1 (0.8-1.8); Bilirubin, Total 0.5 mg/dL (0.1-1.0); Bun/Creatinine Ratio 24.1 (12.0-20.0); Calcium, Blood 8.3 mg/dL (8.5-10.1); Creatinine, Blood 1.08 mg/dL (0.40-1.00); Globulin, Blood 3.3 g/dL (2.2-4.0); Potassium, Blood 3.6 mmol/L (3.5-5.5); Total Protein, Blood 6.8 g/dL (6.4-8.2)
[2023-08-03 18:26] VITALS: BP 165/84
[2023-08-03] MEDS ORDERED: Vitamin B-12100 MCG PO (18:43)
[2023-08-03 19:55] VITALS: BP 180/85
[2023-08-03 21:45] VITALS: BP 134/64
[2023-08-04] VITALS (16 sets, daily range): BP systolic 85–172; BP diastolic 43–94
--- NOTE | 2023-08-04 01:55 | NUR ---
VALIUM: 1.5 ML (7.5MG) IV VALIUM WASTED W/LIU ABBASI. SEE EMAR
[2023-08-04 05:03] LABS: Hemoglobin 11.3 g/dL (11.5-16.0); Mean Corpuscular HGB 32.6 pg (26.0-34.0); Mean Corpuscular HGB Conc 34.2 g/dL (31.5-36.5); Mean Corpuscular Volume 95 fL (80-100); Platelet Count 165 K/mm3 (150-400); RDW Coefficient Variation 13.2 % (11.7-14.2); RDW Standard Deviation 46.3 fL (35.1-46.3); Red Blood Cell Count 3.47 M/mm3 (3.80-5.20); White Blood Cell Count 7.88 K/mm3 (4.00-11.30)
[2023-08-04 05:34] LABS: Bun/Creatinine Ratio 22.5 (12.0-20.0); Calcium, Blood 8.7 mg/dL (8.5-10.1); Creatinine, Blood 1.02 mg/dL (0.40-1.00); Potassium, Blood 3.1 mmol/L (3.5-5.5)
--- NOTE | 2023-08-04 05:36 | NUR ---
SHIFT SUMMARY LEFT HIP FX. PT HAVING SEVERE MUSCLE SPASMS IN THE LEFT LEG. VALIUM ORDERED AND GIVEN AND PT STATES EFFECTIVE AND WAS ABLE TO REST AFTER ADMINISTRATION. 25 MCG IV FENTANYL + NORCO FOR PAIN MANAGEMENT. NPO SINCE MIDNIGHT. PUREWICK IN PLACE FOR VOIDING. REPOSITIONING FOR COMFORT PRN. USES CALL LIGHT APPROPRIATELY.
--- NOTE | 2023-08-04 13:36 | NUR ---
PATIENT WAS JUST TAKEN BACK TO THE OR.
--- NOTE | 2023-08-04 14:03 | NUR ---
History, Chart, Medications and Allergies reviewed before start of procedure. PATIENT INTO SDS VIA BED FROM SURGICAL FLOOR. Patient confirms NPO status and agrees with scheduled surgery. Lungs clear T/O to Auscultation. IV LEAKING, DC'D INTACT. NEW IV PLACED. PER [facility]ENTER STAFF WHO STOPED DEFIB ON PACER- IF AFTER 5 PM, SEND PATIENT TO FLOOR WITH TLE MONITORING AND DEFIB AVAILABLE AND WILL TURN BACK ON CAPABILITY IN AM.
--- NOTE | 2023-08-04 17:00 | NUR ---
PATIENT ARRIVED FROM PACU TODAY. POD 0 LEFT REINA HIP PATIENT IS A&OX4. PATIENT DENIES PAIN ON HER LEFT HIP AT THIS TIME. HER LEFT HIP HAS AN AQUACEL DRESSING THAT IS C/D/I. SHE DENIES NUMBNESS OR TINGLING. PATIENT IS ABLE TO MOVE ALL FINGERS AND TOES. SHE IS TOLERATING SMALL AMOUNTS OF PO INTAKE. DENIES NAUSEA OR VOMITING. PATIENT IS LAYING IN BED WITH CALL LIGHT IN REACH.
--- NOTE | 2023-08-04 23:25 | NUR ---
DR CONSULT DR NOTIFIED OF PT HYPOTENSION. PT HX OF HTN. DR ACKNOWLEDGED PT CURRENT MEDICATIONS GIVEN TODAY. DR ORDERED FLUIDS FOR PT.
[2023-08-05 01:17] VITALS: BP 87/72
[2023-08-05 02:13] VITALS: BP 112/54
--- NOTE | 2023-08-05 05:04 | NUR ---
SHIFT SUMMARY POD 1 L REINA HIP. NO ACUTE CHANGES OVERNIGHT. VSS, O2 2L NC. BP IMPROVING c FLUID ADMINISTRATION PER PREVIOUS NOTE. AQUACEL C/D/I. TOLERATING ORALS. AWAITING FIRST POST-OP AMBULATION, WBAT. MICHEL IN PLACE, DRAINING YELLOW URINE TO GRAVITY. PT MEDICATED 1x c TYLENOL FOR PAIN, PT REPORTS MINIMAL PAIN POST-OP. CALL LIGHT WITHIN REACH, BED IN LOWEST POSITION, WILL REPORT TO DAY RN.
[2023-08-05 07:12] VITALS: BP 116/59
[2023-08-05 09:01] LABS: BASOPHILS ABSOLUTE AUTO 0.01 K/mm3 (0.00-0.23); BASOPHILS PERCENT AUTO 0 % (0-2); EOSINOPHILS PERCENT AUTO 0 % (0-6); Hematocrit 31.2 % (33.0-51.0); Hemoglobin 10.4 g/dL (11.5-16.0); IMMATURE GRAN ABSOLUTE AUTO 0.09 K/mm3 (0.00-0.10); IMMATURE GRAN PERCENT AUTO 1 % (0-1); LYMPHOCYTES ABSOLUTE AUTO 0.52 K/mm3 (0.84-5.20); LYMPHOCYTES PERCENT AUTO 4 % (21-46); MONOCYTES ABSOLUTE AUTO 1.03 K/mm3 (0.16-1.47); MONOCYTES PERCENT AUTO 8 % (4-13); Mean Corpuscular HGB 32.7 pg (26.0-34.0); Mean Corpuscular HGB Conc 33.3 g/dL (31.5-36.5); Mean Corpuscular Volume 98 fL (80-100); Mean Platelet Volume 10.6 fL (9.1-12.4); NEUTROPHILS ABSOLUTE AUTO 11.07 K/mm3 (1.96-9.15); NEUTROPHILS PERCENT AUTO 87 % (41-73); Platelet Count 148 K/mm3 (150-400); RDW Coefficient Variation 13.2 % (11.7-14.2); RDW Standard Deviation 47.5 fL (35.1-46.3); Red Blood Cell Count 3.18 M/mm3 (3.80-5.20); White Blood Cell Count 12.72 K/mm3 (4.00-11.30)
[2023-08-05 09:23] LABS: Calcium, Blood 7.9 mg/dL (8.5-10.1); Creatinine, Blood 1.41 mg/dL (0.40-1.00); Potassium, Blood 3.3 mmol/L (3.5-5.5)
[2023-08-05 15:06] VITALS: BP 142/60
--- NOTE | 2023-08-05 16:55 | NUR ---
SHIFT SUMMARY POD1 L REINA HIP, VSS/RA, KIA PO, VOIDING, AMB SBA FWW/GB, UP TO CHAIR, PAIN MANAGED. WILL REPORT TO ONCOMING NOC RN.
[2023-08-05 19:38] VITALS: BP 128/65
[2023-08-06 02:29] VITALS: BP 165/70
--- NOTE | 2023-08-06 06:08 | NUR ---
SHIFT SUMMARY POD 2 L REINA HIP. NO ACUTE CHANGES OVERNIGHT. VSS, 1L O2 NC PRN WHILE ASLEEP, BIOX IN USE. AQUACEL C/D/I. TOLERATING ORALS. BEDPAN FOR TOILETING OVERNIGHT, PT STATES TIRED FROM PREVIOUS DAY. USES FWW c GB & 1 PERSON ASSIST. PT MEDICATED c TYLENOL PER EMAR, PT REPORTS PAIN TOLERABLE. ANTICIPATED DISCHARGE TO SNF LATER TODAY. CALL LIGHT WITHIN REACH, BED IN LOWEST POSITION, WILL REPORT TO DAY RN.
[2023-08-06 06:29] LABS: BASOPHILS ABSOLUTE AUTO 0.03 K/mm3 (0.00-0.23); BASOPHILS PERCENT AUTO 0 % (0-2); EOSINOPHILS PERCENT AUTO 1 % (0-6); Hematocrit 26.4 % (33.0-51.0); Hemoglobin 9.2 g/dL (11.5-16.0); IMMATURE GRAN ABSOLUTE AUTO 0.05 K/mm3 (0.00-0.10); IMMATURE GRAN PERCENT AUTO 1 % (0-1); LYMPHOCYTES ABSOLUTE AUTO 0.55 K/mm3 (0.84-5.20); LYMPHOCYTES PERCENT AUTO 8 % (21-46); MONOCYTES ABSOLUTE AUTO 0.85 K/mm3 (0.16-1.47); MONOCYTES PERCENT AUTO 12 % (4-13); Mean Corpuscular HGB 33.1 pg (26.0-34.0); Mean Corpuscular HGB Conc 34.8 g/dL (31.5-36.5); Mean Corpuscular Volume 95 fL (80-100); Mean Platelet Volume 11.4 fL (9.1-12.4); NEUTROPHILS ABSOLUTE AUTO 5.47 K/mm3 (1.96-9.15); NEUTROPHILS PERCENT AUTO 78 % (41-73); Platelet Count 130 K/mm3 (150-400); RDW Coefficient Variation 13.2 % (11.7-14.2); RDW Standard Deviation 46.1 fL (35.1-46.3); Red Blood Cell Count 2.78 M/mm3 (3.80-5.20); White Blood Cell Count 7.05 K/mm3 (4.00-11.30)
[2023-08-06 06:43] LABS: Bun/Creatinine Ratio 27.1 (12.0-20.0); Creatinine, Blood 1.18 mg/dL (0.40-1.00); Potassium, Blood 3.8 mmol/L (3.5-5.5)
[2023-08-06 07:41] VITALS: BP 155/83
--- NOTE | 2023-08-06 14:24 | NUR ---
PT DISCHARGED TO [facility] AT APROX 1400. REPORT CALLED. PACKET AND BELOGINGS SENT WITH [employer]. EXTRA AQUACEL DRESSINGS SENT WITH [employer] WELL.
== END 2023-08-06 13:58 | DRG 522 ==
LOC: ER 11:59 → SURS 15:56
PROVIDERS: Emergency Medicine; Orthopaedic Surgery Sports Medicine; ADMIT Internal Medicine
PROC: 0SRS0JA Replacement of Left Hip Joint, Femoral Surface with Synthetic Substitute, Uncemented, Open Approach (ICD-10-PCS; principal; 2023-08-04 14:00)
DX: S72.002A Fracture of unspecified part of neck of left femur, initial encounter for closed fracture (principal); E87.1 Hypo-osmolality and hyponatremia; I47.20 Ventricular tachycardia, unspecified; I42.8 Other cardiomyopathies; E87.6 Hypokalemia; I25.10 Atherosclerotic heart disease of native coronary artery without angina pectoris; E03.9 Hypothyroidism, unspecified; H40.9 Unspecified glaucoma; I10 Essential (primary) hypertension; S61.219A Laceration without foreign body of unspecified finger without damage to nail, initial encounter; L98.499 Non-pressure chronic ulcer of skin of other sites with unspecified severity; E11.622 Type 2 diabetes mellitus with other skin ulcer; W18.30XA Fall on same level, unspecified, initial encounter; Z66 Do not resuscitate; Z88.2 Allergy status to sulfonamides; Z79.899 Other long term (current) drug therapy; Z79.84 Long term (current) use of oral hypoglycemic drugs; Z79.890 Hormone replacement therapy; Z90.49 Acquired absence of other specified parts of digestive tract; Z85.038 Personal history of other malignant neoplasm of large intestine; Z90.710 Acquired absence of both cervix and uterus; Z90.11 Acquired absence of right breast and nipple; Z85.3 Personal history of malignant neoplasm of breast; Z98.890 Other specified postprocedural states; Z87.81 Personal history of (healed) traumatic fracture; Z90.79 Acquired absence of other genital organ(s); Z90.722 Acquired absence of ovaries, bilateral; Z87.891 Personal history of nicotine dependence; Z87.440 Personal history of urinary (tract) infections; Z87.19 Personal history of other diseases of the digestive system
CPT/HCPCS: 36415; 73502; 80048; 80053; 82947; 85025; 85027; 85610; 93284; 94762; 96374; 96375; 97110; 97116; 97162; 97166; 97535; 99285-25; A9270; C1776; J0171; J0690; J0735; J1100; J1170; J1650; J1885; J2371; J2405; J2704; J2795; J3010; J3360; J3480; J7030; J7050; J7120

== ENCOUNTER → 2024-04-11 | Outpatient (CLI) | payer MEDICARE ==
[~2024-04-11] MED LIST changes: +Vitamin B-12100 MCG PO
== END ==
LOC: LAB SHORT 14:20 → LAB 14:20
DX: L08.9 Local infection of the skin and subcutaneous tissue, unspecified (principal); L57.0 Actinic keratosis
CPT/HCPCS: 87070; 87077; 87147; 87186; 87205

== ENCOUNTER 2025-05-09 11:14 | Emergency (ER) | payer MEDICARE ==
[~2025-05-09] VITALS: Ht 165.1 cm; Wt 53.1 kg
[~2025-05-09 11:14] MED LIST changes: +CALCIUM 1,0001 EAC1 PO; -CALCIUM 1,0001 EACH PO; +DIPATR PO; +JARDIANCE10 MG PO; +LATA.005SO BOTHEYES; -LATANOPROST2.5 ML BOTHEYES; -LEVSOD25; +LEVSOD75 PO; +PANT40 PO; -POTA10T PO; +POTCHL20ER PO; +SULFAMETHOXAZO1 EAC1 PO; +TORSE20 PO
[2025-05-09 11:18] VITALS: BP 120/47
[2025-05-09 12:01] LABS: BASOPHILS ABSOLUTE AUTO 0.05 K/mm3 (0.00-0.23); BASOPHILS PERCENT AUTO 1 % (0-2); EOSINOPHILS ABSOLUTE AUTO 0.06 K/mm3 (0.00-0.68); EOSINOPHILS PERCENT AUTO 1 % (0-6); Hematocrit 26.7 % (33.0-51.0); Hemoglobin 8.7 g/dL (11.5-16.0); IMMATURE GRAN ABSOLUTE AUTO 0.09 K/mm3 (0.00-0.10); IMMATURE GRAN PERCENT AUTO 1 % (0-1); LYMPHOCYTES ABSOLUTE AUTO 0.67 K/mm3 (0.84-5.20); LYMPHOCYTES PERCENT AUTO 10 % (21-46); MONOCYTES ABSOLUTE AUTO 0.58 K/mm3 (0.16-1.47); MONOCYTES PERCENT AUTO 9 % (4-13); Mean Corpuscular HGB Conc 32.6 g/dL (31.5-36.5); Mean Corpuscular Volume 98 fL (80-100); NEUTROPHILS ABSOLUTE AUTO 4.99 K/mm3 (1.96-9.15); NEUTROPHILS PERCENT AUTO 78 % (41-73); NRBC ABSOLUTE 0.00 K/mm3 (0.00-0.02); NRBC Auto 0.0 /100 WBC (0.0-0.2); Platelet Count 240 K/mm3 (150-400); RDW Coefficient Variation 14.6 % (11.7-14.2); RDW Standard Deviation 52.6 fL (35.1-46.3)
[2025-05-09 12:13] LABS: Alanine Aminotransfer (ALT/SGP 52.0 U/L (12-78); Albumin, Blood 3.0 g/dL (3.4-5.0); Albumin/Globulin Ratio 0.8 (0.8-1.8); Anion Gap 6.0 mmol/L (3-11); Aspartate Aminotrans (AST/SGOT 31.0 U/L (12-37); Bilirubin, Total 0.4 mg/dL (0.1-1.0); Blood Urea Nitrogen 44.0 mg/dL (8-24); CO2, Blood 28.0 mmol/L (21-32); Calcium, Blood 8.3 mg/dL (8.5-10.1); Chloride, Blood 106.0 mmol/L (98-108); Creatinine, Blood 1.73 mg/dL (0.40-1.00); Globulin, Blood 3.6 g/dL (2.2-4.0); Glucose, Blood 201.0 mg/dL (70-99); Potassium, Blood 4.7 mmol/L (3.5-5.5); Sodium, Blood 135.0 mmol/L (136-145); Total Protein, Blood 6.6 g/dL (6.4-8.2)
[2025-05-09] MEDS ORDERED: NS 1,000 ML IV SCH ×2 (13:55)
[2025-05-09] MEDS ORDERED: HYDROcodone 5-APAP 325 TAB PO ONE (15:50)
[2025-05-09] MEDS ORDERED: Norco 5-325 Ta1 EACH PO (15:51)
[2025-05-15] MEDS ORDERED: DOCU100 PO (12:17)
== END 2025-05-09 16:31 | disposition home or self-care (01) ==
LOC: ER 11:14
PROVIDERS: Physician Assistant
DX: S32.019A Unspecified fracture of first lumbar vertebra, initial encounter for closed fracture (principal); E86.0 Dehydration; E11.9 Type 2 diabetes mellitus without complications; W19.XXXA Unspecified fall, initial encounter
CPT/HCPCS: 36415; 71046; 72100; 80053; 83690; 83880; 85025; 93005; 93010; 99284-25; A9270; J7030

== ENCOUNTER 2025-06-25 14:01 | Emergency (ER) | payer MEDICARE ==
[~2025-06-25] VITALS: Ht 162.6 cm; Wt 59.0 kg
[~2025-06-25 14:01] MED LIST changes: +DOCU100 PO; +Norco 5-325 Ta1 EACH PO
[2025-06-25 14:28] VITALS: BP 133/71
[2025-06-25] MEDS ORDERED: Ketorolac Tromethamine 30mg Vial IM ONE (14:35)
== END 2025-06-25 14:52 | disposition home or self-care (01) ==
LOC: ER 14:01
DX: M54.50 Low back pain, unspecified (principal); E11.9 Type 2 diabetes mellitus without complications; I50.9 Heart failure, unspecified; Z87.891 Personal history of nicotine dependence; Z79.890 Hormone replacement therapy; Z79.84 Long term (current) use of oral hypoglycemic drugs; Z79.899 Other long term (current) drug therapy
CPT/HCPCS: 96372; 99282-25; J1885